=== PATIENT | female | born 1955 | race Caucasian/White ===

== ENCOUNTER 2017-10-05 10:24 | Outpatient (CLI) | payer OTHER ==
--- NOTE | 2017-10-05 12:03 | MMO ---
BILATERAL DIGITAL SCREENING MAMMOGRAMS: HISTORY: A 62-year-old female presents for digital screening mammography. COMPARISON: 08/04/2016, 09/16/2014, 09/13/2012, 09/10/2011, 08/19/2010 FINDINGS: This patient's mammogram is interpreted with the assistance of computer aided detection. The breasts are heterogeneously dense, which can obscure small masses. There is an occasional typica lly benign calcification. No direct or indirect evidence of malignancy. IMPRESSION: BI-RADS Category 2: Benign findings. Continue routine screening. POS: [facility]
== END 2017-10-05 10:25 | disposition home or self-care (01) ==
LOC: MAMMO 10:24
PROVIDERS: ATTEND Obstetrics & Gynecology
DX: Z12.31 Encounter for screening mammogram for malignant neoplasm of breast (principal)
CPT/HCPCS: 77067; G0202

== ENCOUNTER 2018-10-11 11:17 | Outpatient (CLI) | payer MEDICARE | END 2018-10-11 11:18 | disposition home or self-care (01) | LOC: BICMAMMO 11:17 | PROVIDERS: ATTEND Obstetrics & Gynecology | DX: Z12.31 Encounter for screening mammogram for malignant neoplasm of breast (principal) | CPT/HCPCS: 77063; 77067 ==

== ENCOUNTER 2019-10-15 11:46 | Outpatient (CLI) | payer MEDICARE ==
--- NOTE | 2019-10-15 12:32 | MMO ---
Bilateral MAMMO Bilat Screen [facility]. CLINICAL HISTORY: Patient is 64 years old and is seen for screening. The patient has no family history of breast cancer. The patient has no personal history of cancer. VIEWS: The views performed were: bilateral craniocaudal with tomosynthesis and bilateral mediolateral oblique with tomosynthesis. FILMS COMPARED: The present examination has been compared to a prior imaging study performed at [facility] on 10/11/2018. This study has been interpreted with the assistance of computer-aided detection. MAMMOGRAM FINDINGS: The breasts are heterogeneously dense, which could obscure a lesion on mammography. There are stable benign appearing calcifications seen in both breasts. There are no suspicious masses, suspicious calcifications, or new areas of architectural distortion. IMPRESSION: THERE IS NO MAMMOGRAPHIC EVIDENCE OF MALIGNANCY. A ROUTINE FOLLOW-UP MAMMOGRAM IN 1 YEAR IS RECOMMENDED. THE RESULTS OF THIS EXAM WERE SENT TO THE PATIENT. ACR BI-RADS Category 2 - Benign finding MAMMOGRAPHY NOTE: 1. A negative mammogram report should not delay a biopsy if a dominant of clinically suspicious mass is present. 2. Approximately 10% to 15% of breast cancers are not detected by mammography. 3. Adenosis and dense breasts may obscure an underlying neoplasm. Reported by: MINA AMADOR MD Electonically Signed: [id number]
== END 2019-10-15 11:47 | disposition home or self-care (01) ==
LOC: BICMAMMO 11:46
PROVIDERS: ATTEND Obstetrics & Gynecology
DX: Z12.31 Encounter for screening mammogram for malignant neoplasm of breast (principal)
CPT/HCPCS: 77063; 77067

== ENCOUNTER 2020-10-20 10:43 | Outpatient (CLI) | payer MEDICARE ==
--- NOTE | 2020-10-20 11:45 | MMO ---
Bilateral MAMMO Bilat Screen [facility]. CLINICAL HISTORY: Patient is 65 years old and is seen for screening. The patient has no family history of breast cancer. The patient has no personal history of cancer. VIEWS: The views performed were: bilateral craniocaudal with tomosynthesis and bilateral mediolateral oblique with tomosynthesis. FILMS COMPARED: The present examination has been compared to prior imaging studies performed at [facility] on 10/11/2018 and 10/15/2019, and at [facility] on 08/04/2016 and 10/05/2017. This study has been interpreted with the assistance of computer-aided detection. MAMMOGRAM FINDINGS: The breasts are heterogeneously dense, which could obscure a lesion on mammography. Benign calcifications are noted bilaterally. There are no suspicious masses, suspicious calcifications, or new areas of architectural distortion. IMPRESSION: THERE IS NO MAMMOGRAPHIC EVIDENCE OF MALIGNANCY. A ROUTINE FOLLOW-UP MAMMOGRAM IN 1 YEAR IS RECOMMENDED. THE RESULTS OF THIS EXAM WERE SENT TO THE PATIENT. ACR BI-RADS Category 2 - Benign finding MAMMOGRAPHY NOTE: 1. A negative mammogram report should not delay a biopsy if a dominant of clinically suspicious mass is present. 2. Approximately 10% to 15% of breast cancers are not detected by mammography. 3. Adenosis and dense breasts may obscure an underlying neoplasm. Reported by: AUDREY MILLER MD Electonically Signed: [id number]
== END 2020-10-20 10:44 | disposition home or self-care (01) ==
LOC: BICMAMMO 10:43
PROVIDERS: ATTEND Obstetrics & Gynecology
DX: Z12.31 Encounter for screening mammogram for malignant neoplasm of breast (principal)
CPT/HCPCS: 77063; 77067

== ENCOUNTER 2021-10-19 10:53 | Outpatient (CLI) | payer MEDICARE | END 2021-10-19 10:54 | disposition home or self-care (01) | LOC: BICMAMMO 10:53 | PROVIDERS: ATTEND Obstetrics & Gynecology | DX: Z12.31 Encounter for screening mammogram for malignant neoplasm of breast (principal) | CPT/HCPCS: 77063; 77067 ==

== ENCOUNTER 2023-12-05 13:44 | Outpatient (CLI) | payer MEDICARE | END 2023-12-05 13:45 | disposition home or self-care (01) | LOC: BICMAMMO 13:44 | PROVIDERS: ATTEND Obstetrics & Gynecology | DX: Z12.31 Encounter for screening mammogram for malignant neoplasm of breast (principal) | CPT/HCPCS: 77063; 77067 ==